=== PATIENT | female | born 1945 | race Caucasian/White ===

== ENCOUNTER 2023-08-08 10:56 | Inpatient (IN) | payer MEDICARE ==
[~2023-08-08] VITALS: Ht 167.6 cm; Wt 97.1 kg
[2023-08-08] MEDS ORDERED: hydrALAZINE HCL IV 20 MG VIAL ONE ×2 (12:23→13:34)
[2023-08-08] MEDS ORDERED: ONDANSETRON HCL/PF 4 MG/2 ML VIAL ONE (12:24)
[2023-08-08] MEDS ORDERED: diphenhydrAMINE HCL 50 MG/ML VIAL ONE (12:24)
[2023-08-08] MEDS ORDERED: MECLIZINE HCL 12.5 MG TABLET PO ONE (12:30)
[2023-08-08] MEDS ORDERED: hydrALAZINE HCL IV 20 MG VIAL IV ONE ×2 (12:30→13:30)
[2023-08-08] MEDS ORDERED: diphenhydrAMINE HCL 50 MG/ML VIAL IV ONE (12:30)
[2023-08-08] MEDS ORDERED: ONDANSETRON HCL/PF 4 MG/2 ML VIAL IVP ONE (12:30)
[2023-08-08] MEDS ORDERED: MECLIZINE HCL 25 MG TABLET ONE (12:39)
[2023-08-08 12:54] LABS: BASOPHILS % (AUTO) 0.2 % (0.0-2.0); EOSINOPHILS % (AUTO) 0.1 % (0.0-6.0); HEMATOCRIT 52 % (33-45); HEMOGLOBIN 17.1 g/dL (11.5-14.8); LYMPHOCYTES # (AUTO) 0.8 K/uL (0.8-4.8); LYMPHOCYTES % (AUTO) 9.2 % (20.0-44.0); MEAN CORPUSCULAR HEMOGLOBIN 30 PG (26.0-33.0); MEAN CORPUSCULAR HGB CONC 33 g/dl (31.0-36.0); MEAN CORPUSCULAR VOLUME 91 fL (82-100); MONOCYTES # (AUTO) 0.2 K/uL (0.1-1.30); MONOCYTES % (AUTO) 2.5 % (2.0-12.0); NEUTROPHILS # (AUTO) 8.1 K/uL (1.8-8.9); PLATELET COUNT (AUTO) 257 K/uL (150-450); RED BLOOD CELL COUNT(AUTO) 5.74 MIL/uL (4.0-5.2); RED CELL DISTRIBUTION WIDTH 14.1 % (11.5-15.0); WHITE BLOOD COUNT (AUTO) 9.2 K/uL (4.3-11.0)
[2023-08-08 13:09] LABS: CALCIUM, SERUM 9.6 mg/dL (8.5-10.1); CARBON DIOXIDE 27 mmol/L (21-32); CHLORIDE 102 mmol/L (98-107); GLUCOSE 139 mg/dL (74-106); POTASSIUM 4.3 mmol/L (3.5-5.1); SODIUM SERUM 136 mmol/L (136-145); UREA NITROGEN, BLOOD 16 mg/dL (7-18)
[2023-08-08 13:16] LABS: ALANINE AMINOTRANSFERASE 29 U/L (12-78); ALBUMIN 3.9 g/dL (3.4-5.0); ALKALINE PHOSPHATASE 125 U/L (46-116); ASPARTATE AMINOTRANSFERASE 22 U/L (15-37); BILIRUBIN,DIRECT 0.2 mg/dL (0.0-0.2); BILIRUBIN,TOTAL 1.1 mg/dL (0.2-1.0); TOTAL PROTEIN, SERUM 7.9 g/dL (6.4-8.2)
[2023-08-08] MEDS ORDERED: DIAZEPAM 5 MG/ML 2 ML DISP.SYRIN IV ONE (13:30)
[2023-08-08] MEDS ORDERED: BUPR75TA21 PO (13:49)
[2023-08-08] MEDS ORDERED: LEVO88TA5 PO (13:49)
[2023-08-08] MEDS ORDERED: DICL75TA5 PO (13:49)
[2023-08-08] MEDS ORDERED: BUPR-96 PO (13:49)
[2023-08-08] MEDS ORDERED: LISI10TA29 PO (13:49)
[2023-08-08] MEDS ORDERED: ASPI-1169 PO (13:49)
[2023-08-08] MEDS ORDERED: DOXE10CA2 PO (13:49)
[2023-08-08] MEDS ORDERED: ZOLP5TAB2 PO (13:49)
[2023-08-08] MEDS ORDERED: DIAZEPAM 5 MG/ML 2 ML DISP.SYRIN ONE (13:49)
[2023-08-08] MEDS ORDERED: Z GUARD REMEDY 4 OZ OINT TP PRN (17:00)
[2023-08-08] MEDS ORDERED: ONDANSETRON HCL/PF 4 MG/2 ML VIAL IVP PRN (17:00)
[2023-08-08] MEDS ORDERED: ACETAMINOPHEN 325 MG TABLET PO PRN (17:00)
[2023-08-08] MEDS: ENOXAPARIN SODIUM 40 MG/0.4 ML DISP.SYRIN SQ SCH (18:03)
[2023-08-08] MEDS: hydrALAZINE HCL IV 20 MG VIAL IV PRN (18:06)
[2023-08-08 18:31] LABS: CHOLESTEROL 261 mg/dL (<200); HDL CHOLESTEROL 71 mg/dL (40-60); LDL 169 mg/dL (0-99); THYROID STIMULATING HORMONE 0.707 uIU/mL (0.358-3.74); TRIGLYCERIDES 64 mg/dL (30-150)
[2023-08-08 20:00] VITALS: BP 161/77; TEMP 97.5; O2SAT 96
[2023-08-08] MEDS ORDERED: DOXEPIN HCL 10 MG CAPSULE PO SCH (22:00)
[2023-08-09] VITALS: BP 135/65; TEMP 97.7; O2SAT 95
[2023-08-09 04:00] VITALS: BP 134/71; TEMP 98.1; O2SAT 95
[2023-08-09 07:00] VITALS: BP 136/78; TEMP 98.6; O2SAT 94
[2023-08-09 07:22] LABS: BASOPHILS % (AUTO) 0.1 % (0.0-2.0); HEMATOCRIT 50 % (33-45); HEMOGLOBIN 16.5 g/dL (11.5-14.8); LYMPHOCYTES # (AUTO) 1.3 K/uL (0.8-4.8); LYMPHOCYTES % (AUTO) 9.4 % (20.0-44.0); MEAN CORPUSCULAR HEMOGLOBIN 30 PG (26.0-33.0); MEAN CORPUSCULAR HGB CONC 33 g/dl (31.0-36.0); MEAN CORPUSCULAR VOLUME 91 fL (82-100); MONOCYTES # (AUTO) 0.9 K/uL (0.1-1.30); MONOCYTES % (AUTO) 6.3 % (2.0-12.0); NEUTROPHILS # (AUTO) 11.7 K/uL (1.8-8.9); NEUTROPHILS % (AUTO) 84.2 % (43.0-81.0); PLATELET COUNT (AUTO) 315 K/uL (150-450); RED BLOOD CELL COUNT(AUTO) 5.54 MIL/uL (4.0-5.2); RED CELL DISTRIBUTION WIDTH 14.8 % (11.5-15.0); WHITE BLOOD COUNT (AUTO) 13.8 K/uL (4.3-11.0)
[2023-08-09 07:50] LABS: CALCIUM, SERUM 9.5 mg/dL (8.5-10.1); CARBON DIOXIDE 25 mmol/L (21-32); CHLORIDE 101 mmol/L (98-107); CREATININE 1.4 mg/dL (0.6-1.3); GLUCOSE 129 mg/dL (74-106); MAGNESIUM 2.2 mg/dL (1.8-2.4); PHOSPHORUS 4.8 mg/dL (2.5-4.9); POTASSIUM 4.4 mmol/L (3.5-5.1); SODIUM SERUM 135 mmol/L (136-145); UREA NITROGEN, BLOOD 22 mg/dL (7-18)
[2023-08-09] MEDS: PANTOPRAZOLE 40 MG TABLET.DR PO SCH (08:03)
[2023-08-09] MEDS: LEVOTHYROXINE SODIUM 88 MCG TABLET PO SCH (08:03)
[2023-08-09] MEDS: BUPROPION XL 150 MG TAB.ER.24 PO SCH (08:03)
[2023-08-09] MEDS: ASPIRIN EC 81 MG TABLET.DR PO SCH (08:03)
[2023-08-09] MEDS: LISINOPRIL (10MG) 10 MG TABLET PO SCH (08:03)
[2023-08-09 11:20] VITALS: BP 147/77; TEMP 98.4; O2SAT 97
[2023-08-09 16:00] VITALS: BP 137/65; TEMP 98.2; O2SAT 96
[2023-08-09 20:10] VITALS: BP 123/79; TEMP 99; O2SAT 94
[2023-08-09] MEDS: DOXEPIN HCL 10 MG CAPSULE PO SCH (21:04)
[2023-08-09] MEDS: ENOXAPARIN SODIUM 40 MG/0.4 ML DISP.SYRIN SQ SCH (21:06)
[2023-08-10 00:47] VITALS: BP_SYST 145; BP_SYST 181; BP_DIAS 83; BP_DIAS 84; TEMP 98.8; TEMP 99.1; O2SAT 91; O2SAT 92
[2023-08-10] MEDS: hydrALAZINE HCL IV 20 MG VIAL IV PRN (06:02)
[2023-08-10 06:28] LABS: BASOPHILS % (AUTO) 0.3 % (0.0-2.0); EOSINOPHILS # (AUTO) 0.1 K/uL (0.0-0.7); EOSINOPHILS % (AUTO) 0.4 % (0.0-6.0); HEMATOCRIT 50 % (33-45); HEMOGLOBIN 16.4 g/dL (11.5-14.8); LYMPHOCYTES % (AUTO) 15.6 % (20.0-44.0); MEAN CORPUSCULAR HEMOGLOBIN 30 PG (26.0-33.0); MEAN CORPUSCULAR HGB CONC 33 g/dl (31.0-36.0); MEAN CORPUSCULAR VOLUME 91 fL (82-100); MONOCYTES # (AUTO) 1.1 K/uL (0.1-1.30); MONOCYTES % (AUTO) 8.3 % (2.0-12.0); NEUTROPHILS # (AUTO) 9.6 K/uL (1.8-8.9); NEUTROPHILS % (AUTO) 75.4 % (43.0-81.0); PLATELET COUNT (AUTO) 289 K/uL (150-450); RED BLOOD CELL COUNT(AUTO) 5.51 MIL/uL (4.0-5.2); RED CELL DISTRIBUTION WIDTH 14.6 % (11.5-15.0); WHITE BLOOD COUNT (AUTO) 12.7 K/uL (4.3-11.0)
[2023-08-10 06:30] VITALS: BP 158/78; TEMP 99.1; O2SAT 94
[2023-08-10 06:55] LABS: CALCIUM, SERUM 9.4 mg/dL (8.5-10.1); CARBON DIOXIDE 25 mmol/L (21-32); CHLORIDE 102 mmol/L (98-107); CREATININE 1.4 mg/dL (0.6-1.3); GLUCOSE 108 mg/dL (74-106); POTASSIUM 4.3 mmol/L (3.5-5.1); SODIUM SERUM 137 mmol/L (136-145); UREA NITROGEN, BLOOD 27 mg/dL (7-18)
[2023-08-10 08:20] LABS: PLATELET ESTIMATE ADEQUATE
[2023-08-10] MEDS: ASPIRIN EC 81 MG TABLET.DR PO SCH (08:54)
[2023-08-10] MEDS: LEVOTHYROXINE SODIUM 88 MCG TABLET PO SCH (08:54)
[2023-08-10] MEDS: PANTOPRAZOLE 40 MG TABLET.DR PO SCH (08:54)
[2023-08-10] MEDS: LISINOPRIL (10MG) 10 MG TABLET PO SCH (08:55)
[2023-08-10] MEDS: BUPROPION XL 150 MG TAB.ER.24 PO SCH (08:55)
[2023-08-10] MEDS: ATORVASTATIN 40 MG TABLET PO SCH ×2 (09:00→12:29)
[2023-08-10 09:05] VITALS: BP 180/87; TEMP 97.1; O2SAT 92
[2023-08-10 09:26] LABS: THYROID STIMULATING HORMONE 1.322 uIU/mL (0.358-3.74)
[2023-08-10] MEDS: METOPROLOL TARTRATE 50 MG TABLET PO SCH ×2 (12:29→17:45)
[2023-08-10 18:32] LABS: APPEARANCE,URINE TURBID (CLEAR); BILIRUBIN,URINE NEGATIVE (NEGATIVE); BLOOD, URINE 2+ Ery/uL (NEGATIVE); COLOR,URINE YELLOW (YELLOW); KETONES,URINE NEGATIVE (NEGATIVE); LEUKOCYTE ESTERASE ,URINE 3+ (NEGATIVE); NITRITE, URINE POSITIVE (NEGATIVE); PROTEIN,URINE TRACE mg/dl (NEGATIVE); UGLUCOSE NEGATIVE (NEGATIVE); UROBILINOGEN,URINE 0.2 EU/dL (0.2)
[2023-08-10 18:38] LABS: CREATININE, URINE 127.3 MG/DL (30.0-125.0); URINE TOTAL PROTEIN 33.2 mg/dL (0-11.9)
[2023-08-10 19:00] VITALS: BP 124/77; TEMP 97.8; O2SAT 95
[2023-08-10 19:22] LABS: ADD URINE CULTURE YES; BACTERIA,URINE 3+ /HPF (None Seen); MUCUS,URINE Few /LPF (None Seen); WBC,URINE TOO NUMEROUS TO COUN /HPF (0-3)
[2023-08-10 21:03] LABS: EOSINOPHIL,URINE None Seen
[2023-08-10] MEDS: DOXAZOSIN MESYLATE (1 MG) 1 MG TABLET PO SCH (21:11)
[2023-08-10] MEDS: ENOXAPARIN SODIUM 40 MG/0.4 ML DISP.SYRIN SQ SCH (21:19)
[2023-08-10] MEDS: DOXEPIN HCL 10 MG CAPSULE PO SCH (21:36)
[2023-08-11] VITALS: BP 124/70; TEMP 97.8; O2SAT 91
[2023-08-11] MEDS: METOPROLOL TARTRATE 50 MG TABLET PO SCH ×4 (01:00→17:56)
[2023-08-11 04:00] VITALS: BP 129/67; TEMP 97.9; O2SAT 90
[2023-08-11 07:21] LABS: ALBUMIN 2.9 g/dL (3.4-5.0); BILIRUBIN,TOTAL 1.9 mg/dL (0.2-1.0); CALCIUM, SERUM 9.3 mg/dL (8.5-10.1); CREATININE 1.2 mg/dL (0.6-1.3); MAGNESIUM 2.5 mg/dL (1.8-2.4); PHOSPHORUS 3.1 mg/dL (2.5-4.9); POTASSIUM 4.3 mmol/L (3.5-5.1); TOTAL PROTEIN, SERUM 6.8 g/dL (6.4-8.2)
[2023-08-11 07:26] LABS: BASOPHILS # (AUTO) 0.1 K/uL (0.0-0.2); BASOPHILS % (AUTO) 0.6 % (0.0-2.0); EOSINOPHILS # (AUTO) 0.1 K/uL (0.0-0.7); EOSINOPHILS % (AUTO) 1.1 % (0.0-6.0); HEMATOCRIT 49 % (33-45); LYMPHOCYTES # (AUTO) 1.9 K/uL (0.8-4.8); LYMPHOCYTES % (AUTO) 20.4 % (20.0-44.0); MEAN CORPUSCULAR HEMOGLOBIN 30 PG (26.0-33.0); MEAN CORPUSCULAR HGB CONC 33 g/dl (31.0-36.0); MEAN CORPUSCULAR VOLUME 91 fL (82-100); MONOCYTES % (AUTO) 10.8 % (2.0-12.0); NEUTROPHILS # (AUTO) 6.4 K/uL (1.8-8.9); NEUTROPHILS % (AUTO) 67.1 % (43.0-81.0); PLATELET COUNT (AUTO) 270 K/uL (150-450); RED BLOOD CELL COUNT(AUTO) 5.42 MIL/uL (4.0-5.2); RED CELL DISTRIBUTION WIDTH 14.5 % (11.5-15.0); WHITE BLOOD COUNT (AUTO) 9.5 K/uL (4.3-11.0)
[2023-08-11] MEDS: PANTOPRAZOLE 40 MG TABLET.DR PO SCH (07:49)
[2023-08-11] MEDS: LEVOTHYROXINE SODIUM 88 MCG TABLET PO SCH (07:50)
[2023-08-11 08:00] VITALS: BP 130/73; TEMP 98.4; O2SAT 94
[2023-08-11] MEDS: ASPIRIN EC 81 MG TABLET.DR PO SCH (08:38)
[2023-08-11] MEDS: BUPROPION XL 150 MG TAB.ER.24 PO SCH (08:38)
[2023-08-11] MEDS: ATORVASTATIN 40 MG TABLET PO SCH (08:39)
[2023-08-11] MEDS: NIFEdipine XL (30MG) 30 MG TAB PO SCH (08:39)
[2023-08-11] MEDS: LISINOPRIL (10MG) 10 MG TABLET PO SCH ×2 (08:40→08:41)
[2023-08-11 16:00] VITALS: BP 104/65; TEMP 98.4; O2SAT 94
[2023-08-11 20:00] VITALS: BP 110/65; TEMP 98.6; O2SAT 92
[2023-08-11] MEDS: ENOXAPARIN SODIUM 40 MG/0.4 ML DISP.SYRIN SQ SCH (21:38)
[2023-08-11] MEDS: DOXAZOSIN MESYLATE (1 MG) 1 MG TABLET PO SCH (21:39)
[2023-08-11] MEDS: DOXEPIN HCL 10 MG CAPSULE PO SCH (21:39)
[2023-08-12 00:11] VITALS: BP 111/63; TEMP 98.1; O2SAT 92
[2023-08-12] MEDS: METOPROLOL TARTRATE 50 MG TABLET PO SCH ×2 (00:54→06:57)
[2023-08-12 04:00] VITALS: BP 111/63; TEMP 98.1; O2SAT 92
[2023-08-12 04:08] LABS: PTH, INTACT 53 pg/mL (15-65)
[2023-08-12 06:36] LABS: BASOPHILS # (AUTO) 0.1 K/uL (0.0-0.2); BASOPHILS % (AUTO) 0.9 % (0.0-2.0); EOSINOPHILS # (AUTO) 0.2 K/uL (0.0-0.7); HEMATOCRIT 49 % (33-45); HEMOGLOBIN 16.3 g/dL (11.5-14.8); LYMPHOCYTES # (AUTO) 3.1 K/uL (0.8-4.8); LYMPHOCYTES % (AUTO) 31.3 % (20.0-44.0); MEAN CORPUSCULAR HEMOGLOBIN 30 PG (26.0-33.0); MEAN CORPUSCULAR HGB CONC 33 g/dl (31.0-36.0); MEAN CORPUSCULAR VOLUME 92 fL (82-100); MONOCYTES # (AUTO) 0.8 K/uL (0.1-1.30); MONOCYTES % (AUTO) 7.8 % (2.0-12.0); NEUTROPHILS # (AUTO) 5.8 K/uL (1.8-8.9); PLATELET COUNT (AUTO) 267 K/uL (150-450); RED BLOOD CELL COUNT(AUTO) 5.36 MIL/uL (4.0-5.2); RED CELL DISTRIBUTION WIDTH 14.2 % (11.5-15.0)
[2023-08-12 07:16] LABS: CALCIUM, SERUM 9.4 mg/dL (8.5-10.1); CREATININE 1.3 mg/dL (0.6-1.3); MAGNESIUM 2.6 mg/dL (1.8-2.4); PHOSPHORUS 3.5 mg/dL (2.5-4.9)
[2023-08-12] MEDS: PANTOPRAZOLE 40 MG TABLET.DR PO SCH (07:35)
[2023-08-12] MEDS: LEVOTHYROXINE SODIUM 88 MCG TABLET PO SCH (07:35)
[2023-08-12] MEDS: LISINOPRIL (10MG) 10 MG TABLET PO SCH (08:21)
[2023-08-12] MEDS: ASPIRIN EC 81 MG TABLET.DR PO SCH (08:21)
[2023-08-12] MEDS: BUPROPION XL 150 MG TAB.ER.24 PO SCH (08:21)
[2023-08-12 08:23] VITALS: BP 123/73
[2023-08-12] MEDS: NIFEdipine XL (30MG) 30 MG TAB PO SCH (08:23)
[2023-08-12 09:05] LABS: ALBUMIN 3.1 g/dL (3.4-5.0); BILIRUBIN,TOTAL 1.5 mg/dL (0.2-1.0); CALCIUM, SERUM 9.2 mg/dL (8.5-10.1); CREATININE 1.3 mg/dL (0.6-1.3); POTASSIUM 4.1 mmol/L (3.5-5.1); TOTAL PROTEIN, SERUM 7.2 g/dL (6.4-8.2)
[2023-08-12] MEDS ORDERED: MECL-159 PO (10:34)
[2023-08-12] MEDS ORDERED: NIFE-35 PO (10:34)
[2023-08-12] MEDS ORDERED: LISI10TA29 PO (10:34)
[2023-08-12 12:12] LABS: *SPE ALPHA-1-GLOBULIN 0.3 g/dL (0.0-0.4); *SPE ALPHA-2-GLOBULIN 0.8 g/dL (0.4-1.0); *SPE BETA GLOBULIN 1.1 g/dL (0.7-1.3); *SPE M-SPIKE Not Observed g/dL (Not Observed); *SPEGAMMA GLOBULIN 0.8 g/dL (0.4-1.8)
== END 2023-08-12 15:02 | disposition home health service (06) | DRG 281 ==
LOC: ER 11:59 → TELE 15:33
PROVIDERS: ADMIT Nurse Practitioner Acute Care; ATTEND Internal Medicine
DX: I16.0 Hypertensive urgency (principal); I21.A1 Myocardial infarction type 2; E87.1 Hypo-osmolality and hyponatremia; G45.0 Vertebro-basilar artery syndrome; N17.9 Acute kidney failure, unspecified; E03.9 Hypothyroidism, unspecified; I10 Essential (primary) hypertension; M19.90 Unspecified osteoarthritis, unspecified site; D75.1 Secondary polycythemia; E66.9 Obesity, unspecified; E78.5 Hyperlipidemia, unspecified; F32.A Depression, unspecified; Z79.899 Other long term (current) drug therapy; Z79.82 Long term (current) use of aspirin; Z90.49 Acquired absence of other specified parts of digestive tract; E83.9 Disorder of mineral metabolism, unspecified; G47.33 Obstructive sleep apnea (adult) (pediatric); Z68.34 Body mass index [BMI] 34.0-34.9, adult; H81.10 Benign paroxysmal vertigo, unspecified ear; E86.9 Volume depletion, unspecified; M89.8X9 Other specified disorders of bone, unspecified site; K76.0 Fatty (change of) liver, not elsewhere classified
CPT/HCPCS: 36415; 70450-TC; 70551-TC; 71045-TC; 76700-TC; 80048-TC; 80053-TC; 80061-TC; 80076-TC; 81001; 82550-TC; 82570-TC; 82962-TC; 83735-TC; 83835; 83970; 84100-TC; 84155; 84165; 84244; 84300-TC; 84439-TC; 84443-TC; 84484-TC; 85025-TC; 87086-TC; 93307-TC; 97110-TC; 97116-TC; 97530-TC; G0378; J0360; J1200; J1650; J2405; J3360; J8597